=== PATIENT | female | born 1950 | race Caucasian/White ===

== ENCOUNTER 2022-04-27 09:42 | Inpatient (IN) | payer MEDICARE, OTHER ==
[2022-04-27 10:15] LABS: #Eosinphils 0.1 thou/uL (0.0-0.7); #Lymphocytes 1.2 thou/uL (1.20-3.40); #Monocytes 0.5 thou/uL (0.11-0.59); #Neutrophils 2.9 thou/uL (1.40-6.50); %Basophils 0.2 % (0.0-1.0); %Eosinophils 2.1 % (0.0-10.0); %Monocytes 10.4 % (0.0-10.0); %Neutrophils 62.3 % (42.0-75.0); Hemoglobin 12.8 g/dL (12.0-16.0); Mean Corpuscular HGB CONC 32.1 g/dL (32.0-36.0); Mean Corpuscular Hemoglobin 29.9 pg (27.0-31.0); Mean Corpuscular Volume 93.2 fL (78.0-98.0); Mean Platelet Volume 6.8 fL (7.4-10.4); Platelet Count 333 thou/uL (130-400); RBC Distribution Width 11.7 % (11.5-14.5); Red Blood Cell (RBC) Count 4.29 mill/uL (4.20-5.40); White Blood Cell (WBC) Count 4.7 thou/uL (4.8-10.8)
[2022-04-27 10:23] LABS: ALT (SGPT) 18 U/L (8-55); AST (SGOT) 76 U/L (5-34); Alkaline Phosphatase 121 U/L (40-110); Anion Gap 10 mmol/L (10-20); BUN (Urea Nitrogen) 9 mg/dL (9.8-20.1); Bilirubin, Total 0.5 mg/dL (0.2-1.2); Calc. Creatinine Clearance 0 mL/min (70-130); Calcium 9.5 mg/dL (7.8-10.44); Carbon Dioxide 28 mmol/L (23-31); Chloride 102 mmol/L (98-107); Estimated GFR 89; Globulin 3.6 g/dL (2.4-3.5); Glucose 90 mg/dL (80-115); Potassium 4.3 mmol/L (3.5-5.1); Protein, Total 7.6 g/dL (5.8-8.1); Sodium 136 mmol/L (136-145)
[2022-04-27] MEDS ORDERED: Ondansetron ODT 4 MG TAB PO PRN (12:43)
[2022-04-27] MEDS ORDERED: Acetaminophen 325 MG TAB PO PRN (12:43)
[2022-04-27 15:52] VITALS: BMI 31.6
[2022-04-27] MEDS ORDERED: Albuterol Sulfate 2.5 mg/3 ml Neb NEB PRN (19:24)
[2022-04-27] MEDS: Atorvastatin Calcium 40 MG TAB PO SCH (20:46)
[2022-04-28 04:47] LABS: #Eosinphils 0.1 thou/uL (0.0-0.7); #Monocytes 0.5 thou/uL (0.11-0.59); #Neutrophils 2.6 thou/uL (1.40-6.50); %Basophils 0.7 % (0.0-1.0); %Lymphocytes 23.8 % (21.0-51.0); %Monocytes 12.5 % (0.0-10.0); %Neutrophils 59.9 % (42.0-75.0); Hemoglobin 12.3 g/dL (12.0-16.0); Mean Corpuscular HGB CONC 32.1 g/dL (32.0-36.0); Mean Corpuscular Hemoglobin 29.9 pg (27.0-31.0); Mean Corpuscular Volume 93.2 fL (78.0-98.0); Mean Platelet Volume 6.6 fL (7.4-10.4); Platelet Count 303 thou/uL (130-400); RBC Distribution Width 11.6 % (11.5-14.5); Red Blood Cell (RBC) Count 4.12 mill/uL (4.20-5.40); White Blood Cell (WBC) Count 4.3 thou/uL (4.8-10.8)
[2022-04-28 04:59] LABS: Hemoglobin A1c 5.1 % (4.0-6.0)
[2022-04-28 05:33] LABS: Anion Gap 12 mmol/L (10-20); BUN (Urea Nitrogen) 10 mg/dL (9.8-20.1); Carbon Dioxide 26 mmol/L (23-31); Chloride 102 mmol/L (98-107); Potassium 4.1 mmol/L (3.5-5.1); Sodium 136 mmol/L (136-145)
[2022-04-28 05:34] LABS: Calc. Creatinine Clearance 102 mL/min (70-130); Cardiac Risk 2.6 (Less than 4.5); Cholesterol 120 mg/dl (< 200 Desired); Estimated GFR 89; Glucose 97 mg/dL (80-115); HDL Cholesterol 46 mg/dL (>60 Neg Risk); LDL Cholesterol, Calculated 61 mg/dL; Triglycerides 66 mg/dL (Less than 150)
[2022-04-28] MEDS: Budesonide 0.5 MG/2 ML NEB NEB SCH ×2 (07:31→18:55)
[2022-04-28] MEDS: Enoxaparin Sodium 40 MG/0.4 ML SYRINGE SC SCH (08:28)
[2022-04-28] MEDS ORDERED: predniSONE 20 MG TAB PO SCH (09:00)
[2022-04-28] MEDS ORDERED: FLU VACC QS2022-23(65YR UP)/PF 240 MCG/0.7 ML SYRINGE IM ONE (09:00)
[2022-04-28] MEDS ORDERED: Non-Formulary Item 1 EACH (Levothyroxine Sodium [Levothyroxine] 75 MCG Capsule) PO SCH (09:00)
[2022-04-28] MEDS ORDERED: Artificial Tear Sol 15 ML BOT L EYE PRN (12:15)
[2022-04-28] MEDS ORDERED: CEFAZOLIN 2 GM in Sodium Chloride 0.9% 100 ML IVPB SCH (17:15)
[2022-04-28] MEDS: Atorvastatin Calcium 40 MG TAB PO SCH (20:08)
[2022-04-28] MEDS: Calcium Carbonate 600 MG TAB PO SCH (20:10)
[2022-04-28] MEDS: Multivitamin W/ Minerals 1 TAB PO SCH (20:10)
[2022-04-28] MEDS: Cholecalciferol 1,000 UNITS (25 MCG) TAB PO SCH (20:11)
[2022-04-28] MEDS: Magnesium Oxide 250 MG TAB PO SCH (20:11)
[2022-04-28] MEDS ORDERED: Non-Formulary Item 1 EACH (Cholecalciferol (Vitamin D3) [Vitamin D3] 5,000 UNITS Capsule) PO SCH (21:00)
[2022-04-28] MEDS ORDERED: Non-Formulary Item 1 EACH (Magnesium Oxide [Magnesium] 500 MG Capsule) PO SCH (21:00)
[2022-04-28] MEDS ORDERED: CALCIUM CARBONATE 650 MG PO SCH (21:00)
[2022-04-29 04:53] LABS: #Eosinphils 0.1 thou/uL (0.0-0.7); #Lymphocytes 1.6 thou/uL (1.20-3.40); #Monocytes 0.8 thou/uL (0.11-0.59); #Neutrophils 4.4 thou/uL (1.40-6.50); %Basophils 0.4 % (0.0-1.0); %Lymphocytes 23.1 % (21.0-51.0); %Monocytes 11.2 % (0.0-10.0); %Neutrophils 64.3 % (42.0-75.0); Mean Corpuscular Hemoglobin 29.7 pg (27.0-31.0); Mean Corpuscular Volume 92.7 fL (78.0-98.0); Mean Platelet Volume 6.9 fL (7.4-10.4); Platelet Count 311 thou/uL (130-400); RBC Distribution Width 11.6 % (11.5-14.5); Red Blood Cell (RBC) Count 4.04 mill/uL (4.20-5.40); White Blood Cell (WBC) Count 6.8 thou/uL (4.8-10.8)
[2022-04-29] MEDS: Levothyroxine Sodium 75 MCG TAB PO SCH (05:42)
[2022-04-29 05:55] LABS: Anion Gap 13 mmol/L (10-20); BUN (Urea Nitrogen) 10 mg/dL (9.8-20.1); Calc. Creatinine Clearance 96 mL/min (70-130); Carbon Dioxide 28 mmol/L (23-31); Chloride 102 mmol/L (98-107); Estimated GFR 82; Glucose 104 mg/dL (80-115); Potassium 4.7 mmol/L (3.5-5.1); Sodium 138 mmol/L (136-145)
[2022-04-29] MEDS: Budesonide 0.5 MG/2 ML NEB NEB SCH ×2 (07:29→19:21)
[2022-04-29] MEDS: Enoxaparin Sodium 40 MG/0.4 ML SYRINGE SC SCH (08:05)
[2022-04-29] MEDS: predniSONE 20 MG TAB PO SCH (08:49)
[2022-04-29] MEDS: Sodium Chloride 0.9% 1,000 ML IV SCH ×2 (08:52→19:03)
[2022-04-29] MEDS: Magnesium Oxide 250 MG TAB PO SCH (20:10)
[2022-04-29] MEDS: Cholecalciferol 1,000 UNITS (25 MCG) TAB PO SCH (20:10)
[2022-04-29] MEDS: Calcium Carbonate 600 MG TAB PO SCH (20:10)
[2022-04-29] MEDS: Multivitamin W/ Minerals 1 TAB PO SCH (20:10)
[2022-04-29] MEDS: Atorvastatin Calcium 40 MG TAB PO SCH (20:12)
[2022-04-30] MEDS: Levothyroxine Sodium 75 MCG TAB PO SCH (05:47)
[2022-04-30 07:16] LABS: HSV 1 - DNA Negative (Negative); HSV 2 - DNA Negative (Negative)
[2022-04-30] MEDS: Budesonide 0.5 MG/2 ML NEB NEB SCH (07:20)
[2022-04-30] MEDS ORDERED: Sodium Chloride 0.9% 1,000 ML IV SCH (08:00)
[2022-04-30] MEDS ORDERED: Bupivacaine PF 0.5% 30 ML VIAL ONE (08:46)
[2022-04-30] MEDS ORDERED: EPINEPHrine 1 MG/ML AMP ONE (08:46)
[2022-04-30] MEDS ORDERED: Midazolam HCl 2 mg/2 ml Vial ONE (08:48)
[2022-04-30] MEDS ORDERED: fentaNYL Citrate/PF 100 MCG/2 ML SYRINGE ONE (08:48)
[2022-04-30] MEDS ORDERED: Sodium Chloride 0.9% 100 ML ONE (08:59)
[2022-04-30] MEDS ORDERED: CEFAZOLIN 2 GM VIAL ONE (08:59)
[2022-04-30] MEDS ORDERED: Promethazine HCl 25 MG/ML VIAL IVPB PRN (09:00)
[2022-04-30] MEDS ORDERED: Ondansetron HCl/PF 4 MG/2 ML Vial IVP PRN (09:00)
[2022-04-30] MEDS ORDERED: Promethazine HCl 25 MG/ML VIAL IM PRN (09:00)
[2022-04-30] MEDS ORDERED: Ondansetron PF 4 MG/2 ML Vial ONE (09:07)
[2022-04-30] MEDS ORDERED: Dexamethasone 20 MG/5 ML VIAL ONE (09:07)
[2022-04-30] MEDS ORDERED: PHENYLEPHRINE-NS 100 MCG/ML 10 ML SYRINGE ONE (09:07)
[2022-04-30] MEDS ORDERED: PROPOFOL 200 MG/20 ML VIAL ONE (09:07)
[2022-04-30] MEDS ORDERED: traMADol HCl 50 MG TAB PO PRN (09:21)
[2022-04-30] MEDS ORDERED: Ketorolac Tromethamine 30 MG/ML VIAL IVP SCH (09:30)
[2022-04-30] MEDS ORDERED: Acetaminophen 500 MG TAB PO SCH (09:30)
[2022-04-30] MEDS: predniSONE 20 MG TAB PO SCH (10:47)
[2022-04-30] MEDS: Enoxaparin Sodium 40 MG/0.4 ML SYRINGE SC SCH (11:08)
[2022-04-30] MEDS ORDERED: Ibuprofen 600 MG TAB PO PRN (16:00)
[2022-04-30] MEDS ORDERED: Acetaminophen 500 MG TAB PO PRN (16:00)
[2022-04-30 16:29] VITALS: BP 104/63; TEMP 98.2
== END 2022-04-30 17:30 | disposition home or self-care (01) | DRG 42 ==
LOC: ERS 09:42 → ERHOLD 11:43 → NEURO 15:12 → OBSVTOIN 04-28 14:54
PROVIDERS: ADMIT Hospitalist; ATTEND Internal Medicine
PROC: 07B10ZX Excision of Right Neck Lymphatic, Open Approach, Diagnostic (ICD-10-PCS; principal; 2022-04-30)
DX: G51.0 Bell's palsy (principal); D50.9 Iron deficiency anemia, unspecified; R59.0 Localized enlarged lymph nodes; D86.9 Sarcoidosis, unspecified; I10 Essential (primary) hypertension; G47.33 Obstructive sleep apnea (adult) (pediatric); Z96.653 Presence of artificial knee joint, bilateral; Z20.822 Contact with and (suspected) exposure to COVID-19; Z98.84 Bariatric surgery status; J45.909 Unspecified asthma, uncomplicated; Z87.01 Personal history of pneumonia (recurrent); R20.2 Paresthesia of skin
CPT/HCPCS: 36415; 70450; 70551; 71045; 76536; 80048; 80053; 80061; 83036; 84439; 84443; 84484; 85025; 87529; 88184; 88185; 90471; 90662; 93005; 93306; 94640; G0008; G0378; J0171; J0690; J1100; J2250; J2405; J2704; J3490; J7050; J7512; J7626; S0020; U0003; U0005

== ENCOUNTER 2022-05-15 10:10 | Outpatient (CLI) | payer MEDICARE, OTHER ==
[2022-05-15] MEDS ORDERED: Iopamidol 370 76% 100 ML VIAL ONE (10:17)
== END 2022-05-15 10:11 | disposition home or self-care (01) ==
LOC: CT 10:10
PROVIDERS: ATTEND Internal Medicine Hematology & Oncology
DX: C73 Malignant neoplasm of thyroid gland (principal); C79.51 Secondary malignant neoplasm of bone; R59.0 Localized enlarged lymph nodes; K76.89 Other specified diseases of liver; E04.9 Nontoxic goiter, unspecified; R91.8 Other nonspecific abnormal finding of lung field
CPT/HCPCS: 70491; 71260; 74177; 78306; A9503; Q9967

== ENCOUNTER 2022-11-20 16:27 | Emergency (ER) | payer MEDICARE, OTHER ==
[~2022-11-20 16:27] MED LIST: Iopamidol-370 76% 500 ML MDV (1 ML CHARGE) ONE
[2022-11-20 17:07] LABS: #Basophils 0.1 thou/uL (0.0-0.2); #Eosinphils 0.1 thou/uL (0.0-0.7); #Monocytes 0.9 thou/uL (0.11-0.59); #Neutrophils 4.5 thou/uL (1.40-6.50); %Basophils 0.8 % (0.0-1.0); %Lymphocytes 11.1 % (21.0-51.0); %Monocytes 14.3 % (0.0-10.0); %Neutrophils 72.5 % (42.0-75.0); Hemoglobin 14.1 g/dL (12.0-16.0); Mean Corpuscular HGB CONC 32.3 g/dL (32.0-36.0); Mean Corpuscular Hemoglobin 26.7 pg (27.0-31.0); Mean Corpuscular Volume 82.6 fl (78.0-98.0); Mean Platelet Volume 9.6 fL (7.4-10.4); Platelet Count 264 10x3/uL (130-400); RBC Distribution Width 15.1 % (11.5-14.5); Red Blood Cell (RBC) Count 5.28 mill/uL (4.20-5.40); White Blood Cell (WBC) Count 6.2 10x3/uL (4.8-10.8)
[2022-11-20] MEDS ORDERED: Ondansetron PF 4 MG/2 ML Vial ONE ×2 (17:12→17:16)
[2022-11-20] MEDS ORDERED: Ketorolac Tromethamine 30 MG/ML VIAL ONE (17:12)
[2022-11-20 17:32] LABS: ALT (SGPT) 35 U/L (8-55); AST (SGOT) 67 U/L (5-34); Albumin 3.5 g/dL (3.4-4.8); Alkaline Phosphatase 468 U/L (40-110); Anion Gap 18 mmol/L (10-20); BUN (Urea Nitrogen) 17 mg/dL (9.8-20.1); Bilirubin, Total 0.3 mg/dL (0.2-1.2); Calc. Creatinine Clearance 0 mL/min (70-130); Calcium 9.4 mg/dL (7.8-10.44); Carbon Dioxide 22 mmol/L (23-31); Chloride 96 mmol/L (98-107); Estimated GFR 90; Globulin 3.9 g/dL (2.4-3.5); Glucose 94 mg/dL (80-115); Lipase 24 U/L (8-78); Potassium 4.7 mmol/L (3.5-5.1); Protein, Total 7.4 g/dL (5.8-8.1); Sodium 131 mmol/L (136-145)
== END 2022-11-20 19:55 | disposition home or self-care (01) ==
LOC: ERS 16:27
DX: C79.51 Secondary malignant neoplasm of bone (principal)
CPT/HCPCS: 74177; 80053; 83690; 85025; 96361; 96374; 96375; J1885; J2405; Q9967